=== PATIENT | male | born 1995 | race Hispanic/Latino ===

== ENCOUNTER 2018-02-20 14:41 | Emergency (ER) | payer SELFPAY ==
[2018-02-20 15:18] VITALS: BP 130/75; TEMP 98.3; O2SAT 95
--- NOTE | 2018-02-20 15:23 | ED.PDOC ---
History of Present Illness - General Chief Complaint: Eye Problems Stated Complaint: Left eye irritation Time Seen by Provider: 02/20/18 14:43 Source: patient Exam Limitations: no limitations - History of Present Illness Initial Comments: Hilton Del Valle 22 y/o male stated unable to take out his contact lens since yesterday and had seen wire basket maker but could not take out same.Has another appointment with wire basket maker Friday. Timing/Duration: yesterday Severity: mild EENT Location: eye (L) Prearrival Treatment: other - eye drops Presenting Symptoms: see hpi Improving Factors: nothing Worsening Factors: nothing Associated Symptoms: denies symptoms Allergies/Adverse Reactions: Allergies NO KNOWN ALLERGY Allergy (Verified 02/20/18 14:49) Home Medications: Ambulatory Orders Polymyxin B-Trimethoprim [Polytrim 41529-9.1 Unit/ml-%] 2 drop OP TID 7 Days #1 dane 02/20/18 Review of Systems - Review of Systems Constitutional: States: no symptoms reported EENTM: States: see HPI Respiratory: States: no symptoms reported Cardiology: States: no symptoms reported Gastrointestinal/Abdominal: States: no symptoms reported All other Systems: Reviewed and Negative, No Change from Baseline Past Medical History (General) - Patient Medical History Hx Stroke: No Hx Congestive Heart Failure: No Hx Diabetes: No Surgical History: other - acl repair - Vaccination History Hx Influenza Vaccination: No Hx Pneumococcal Vaccination: No - Social History Hx Tobacco Use: No Family Medical History - Family History Father Family History: No Known Living Status: Still Living Physical Exam - Physical Exam General Appearance: Alert, Comfortable, No apparent distress Eye Exam: left other - unable to see any margins of contact lens left eye, bilateral normal Ear Exam: bilateral ear: auricle normal Nasal Exam: normal inspection Throat Exam: normal mouth inspection Neck: non-tender, supple Cardiovascular/Respiratory: regular rate, rhythm, no M/R/G, normal peripheral pulses Neurologic: alert, oriented x 3 Skin Exam: normal color, warm/dry Progress - Progress Progress: 02/20/18 15:25 Vital Signs - 8 hr 02/20/18 14:48 Temperature 98.3 F Pulse Rate [ 56 L Left Radial] Respiratory 18 Rate Blood Pressure 130/75 [Left Arm] O2 Sat by Pulse 95 Oximetry 02/20/18 15:26 unable to remove contact lens with cotton swab no film noted on left eyeball conjunctival [place] everted no trace of retained contact lens 02/20/18 15:33 [facility]- right eye -20/25 left eye-20/200 02/20/18 15:45 Departure - Departure Clinical Impression: Contact lens stuck Time of Disposition: 15:26 Disposition: Discharge to Home or Self Care Condition: Good Departure Forms: ED Discharge - Pt. Copy, Patient Portal Self Enrollment Prescriptions: Polymyxin B-Trimethoprim [Polytrim 85446-6.1 Unit/ml-%] 2 drop OP TID 7 Days #1 dane Home Medications: Ambulatory Orders Polymyxin B-Trimethoprim [Polytrim 63199-4.1 Unit/ml-%] 2 drop OP TID 7 Days #1 dane 02/20/18 Additional Instructions: Eye drops to affected eye
== END 2018-02-20 15:40 | disposition home or self-care (01) ==
LOC: ER 14:41
DX: T15.92XA Foreign body on external eye, part unspecified, left eye, initial encounter (principal); X58.XXXA Exposure to other specified factors, initial encounter